=== PATIENT | female | born 1975 | race Caucasian/White ===

== ENCOUNTER 2017-11-29 11:56 | Emergency (ER) | payer OTHER, SELFPAY ==
[~2017-11-29 11:56] MED LIST: Lidocaine 1% 20 ML MDV ONE
[2017-11-29 12:36] LABS: Bilirubin Negative (Negative); Blood, Urine Trace (Negative); Clarity Slightly Cloudy (Clear); Glucose, Urine (Dipstick) >=1000 mg/dL (Negative); Leukocyte Negative (Negative); Nitrite Positive (Negative); Protein, Urine (Dipstick) > or equal to 300 mg/dL (Neg-Trace); Specific Gravity, Urine 1.025 (1.005-1.030); Urobilinogen 0.2 mg/dL (0.2-1.0)
[2017-11-29 12:37] LABS: Bacteria/HPF 1+ HPF (None Seen); RBC/HPF 0-3 HPF (0-3); WBC/HPF 0-3 HPF (0-3)
[2017-11-29] MEDS ORDERED: cefTRIAXone\\ROCEPHIN 1 GM VIAL ONE (13:06)
== END 2017-11-29 13:30 | disposition home or self-care (01) ==
LOC: MADERS 11:56
DX: N39.0 Urinary tract infection, site not specified (principal); E11.9 Type 2 diabetes mellitus without complications; F17.210 Nicotine dependence, cigarettes, uncomplicated; Z97.4 Presence of external hearing-aid
CPT/HCPCS: 81003; 81015; 87086; 96372; J0696; J2001

== ENCOUNTER 2018-01-24 16:49 | Emergency (ER) | payer SELFPAY ==
[~2018-01-24 16:49] MED LIST changes: -Lidocaine 1% 20 ML MDV ONE; +Sodium Chloride 0.9% 1,000 ML BAG ONE; +Sodium Chloride 0.9% 100 ML BAG ONE
[2018-01-24] MEDS ORDERED: Naloxone HCl 2 mg/2 ml Syringe ONE (17:37)
[2018-01-24] MEDS ORDERED: Insulin Regular 300 UNITS/3 ML VIAL ONE ×2 (17:37→18:08)
[2018-01-24] MEDS ORDERED: DOPamine 400 MG/D5W 250 ML 250 ML ONE (18:00)
--- NOTE | 2018-01-24 18:00 | CT ---
NONCONTRAST CT HEAD: 01/24/18 HISTORY: Altered mental status. COMPARISON: 10/29/15. FINDINGS: There is no evidence of a hemorrhage, acute infarction, mass effect or midline shift. The ventricular system is normal in size, shape and position. There does appear to be mild cerebral volume loss. The paranasal sinuses and mastoid air cells are clear. No calvarial fracture is seen. CT of the head is stable from prior exam. IMPRESSION: No acute intracranial abnormalities demonstrated. POS: [facility]
[2018-01-24 18:06] LABS: Amphetamine Not Detected (NotDetected); Barbiturates Screen Not Detected (NotDetected); Benzodiazepine Screen Not Detected (NotDetected); Cocaine Metabolite Screen Not Detected (NotDetected); Medtox Control Line Valid? VALID (VALID); Methadone Not Detected (NotDetected); Methamphetamine Not Detected (NotDetected); Opiate Screen Not Detected (NotDetected); Oxycodone Screen Not Detected (NotDetected); Phencyclidine (PCP) Not Detected (NotDetected); THC/Cannabinoid Screen Not Detected (NotDetected); Tricyclic Screen Not Detected (NotDetected)
[2018-01-24 18:07] LABS: Bilirubin Negative (Negative); Blood, Urine Negative (Negative); Clarity Cloudy (Clear); Glucose, Urine (Dipstick) >=1000 mg/dL (Negative); Leukocyte Negative (Negative); Nitrite Negative (Negative); Protein, Urine (Dipstick) 30 mg/dL (Neg-Trace); Urobilinogen 0.2 mg/dL (0.2-1.0)
[2018-01-24 18:11] LABS: Bacteria/HPF 3+ HPF (None Seen); Crystals/HPF 2+ AMORPH URATES HPF (Negative); RBC/HPF 0-3 HPF (0-3); WBC/HPF None Seen HPF (0-3)
[2018-01-24 18:12] LABS: Pregnancy Test - Urine (BHCG) Negative (Negative); Pregu Control Background? CLEAR/WHITE (CLR/WHITE); Pregu Control Bar Appear? YES (CONTROL BAR)
== END 2018-01-24 18:31 | disposition short-term general hospital (02) ==
LOC: MADERS 16:49
DX: T68.XXXA Hypothermia, initial encounter (principal); E11.65 Type 2 diabetes mellitus with hyperglycemia; F32.9 Major depressive disorder, single episode, unspecified; F17.210 Nicotine dependence, cigarettes, uncomplicated; I95.9 Hypotension, unspecified; Z79.4 Long term (current) use of insulin; Z79.899 Other long term (current) drug therapy
CPT/HCPCS: 51702; 70450; 80306; 81001; 81025; 87086; 93005; 94760; 96361; 96372; 96374; 96375; J1265; J1815; J2310; J7050